=== PATIENT | male | born 1950 | race Caucasian/White ===

== ENCOUNTER 2021-04-19 06:51 | Inpatient (IN) ==
[2021-04-19] MEDS ORDERED: DILTIAZEM 25 MG/5 ML VIAL IV ONE ×2 (07:16→08:01)
[2021-04-19] MEDS ORDERED: DILTIAZEM 125 MG in DEXTROSE 5% IN WATER 100 ML IV SCH (07:30)
--- NOTE | 2021-04-19 07:34 | Emergency Department Note ---
SOB HPI General Chief Complaint: Shortness of Breath/Dyspnea Stated Complaint: SOB Time Seen by Provider: 04/19/21 07:04 Source: patient Mode of arrival: ambulatory Limitations: no limitations History of Present Illness HPI Narrative: Narrative: Presents to room T3 for evaluation of shortness of breath and tachycardia. The patient has a significant past medical history which includes coronary artery disease with CABG. The patient has a cardiomyopathy. The last recorded echocardiogram in our medical record was in 2019 with EF of 58%. Patient also has history of chronic kidney disease and subsequent renal transplant. The patient also has pulmonary scarring and decreased function of his right hemidiaphragm. He reports over the last 6 months he has had worsening shortness of breath. Over the last several months he has had increased swelling in his legs. He states recently he has had decreased exertional tolerance. He reports yesterday that he was doing physical therapy and it was advised that his heart rate was fast and that he should seek medical attention. He comes in this morning for these concerns. He denies any fevers or chills. No cough or sputum production. He denies any sense of pa lpitation or irregular heartbeat. No chest pain. He does report some mild swelling in the legs. The patient denies any significant orthopnea. He does sleep sitting up secondary to his pulmonary disease. He denies any episodes of nocturia or PND. Related Data Home Medications Medication Instructions Recorded Confirmed aspirin 81 mg capsule,delayed 81 mg PO QDAY 05/13/15 01/16/21 release potassium chloride 10 mEq 10 meq PO QDAY 10/10/18 01/16/21 tablet,extended release magnesium oxide 400 mg (241.3 mg 400 mg PO QDAY tab 08/29/20 01/16/21 magnesium) tablet sitagliptin 50 mg tablet 50 mg PO QDAY tab 04/04/21 04/04/21 Previous Rx's Medication Instructions Recorded budesonide-formoterol HFA 160 2 puff INHALATION BID #10.2 g 06/14/20 mcg-4.5 mcg/actuation aerosol inhaler tacrolimus 0.5 mg capsule, 0.5 mg PO Q12H 90 Days #180 cap 07/01/20 immediate-release apixaban 5 mg tablet 5 mg PO DAILY #90 tab 08/24/20 carvedilol 25 mg tablet 37.5 mg PO BID #270 tab 08/24/20 lisinopril 10 mg tablet 10 mg PO QDAY #90 tab 08/24/20 insulin glargine 100 unit/mL (3 35 unit SUB-Q QAM 90 Days #33 ml 09/22/20 mL) subcutaneous pen loperamide 2 mg tablet 2 mg PO BID PRN #20 tab 09/22/20 prednisone 5 mg tablet 5 mg PO QDAY #90 tab 11/18/20 leflunomide 10 mg tablet 10 mg PO .QOD #30 tab 01/04/21 albuterol sulfate 90 mcg/actuation 2 inh INHALATION Q6H PRN #1 each 01/16/21 breath activated powder inhaler atorvastatin 40 mg tablet 40 mg PO QHS #90 tab 02/01/21 insulin lispro 100 unit/mL See Rx Instructions SUB-Q TID #90 02/09/21 subcutaneous pen ml levothyroxine 150 mcg tablet 150 mcg PO QDAY #90 tab 02/09/21 furosemide 20 mg tablet 20 mg PO QAM #90 tab 04/04/21 amlodipine 10 mg tablet 10 mg PO QHS #90 tab 04/10/21 Allergies Allergy/AdvReac Type Severity Reaction Status Date / Time No Known Drug Allergies Allergy Verified 04/19/21 06:52 Review of Systems ROS ROS Narrative: Narrative: All systems ED: reviewed and negative except as stated. PFSH Narrative Patient History Narrative: Narrative: Medical/Surgical/Family History All Active Problems (Updated 04/19/21 @ 10:16 by Phong Bravo MD) Chronic kidney disease, stage II (mild) (Chronic) Homocystinemia (Chronic) HTN (hypertension) (Chronic) Hyperlipidemia (Chronic) Anemia in CKD (chronic kidney disease) (Chronic) intermediate use of drug (Chronic) Long-term insulin use (Chronic) Obesity (Chronic) Urethral stricture (Chronic) Vitamin D deficiency (Chronic) Benign prostatic hypertrophy with lower urinary tract symptoms (LUTS) (Chronic) Visual disturbance (Chronic) Frequent PVCs (Chronic) RBBB (Chronic) Constipation (Chronic) Congestive heart failure (Chronic) Acid reflux disease (Chronic) Polycythemia (Chronic) Bronchiectasis (Chronic) Pulmonary fibrosis (Chronic) Elevated hemidiaphragm (Chronic) BK viruria (Chronic) Hypertensive heart disease with congestive heart failure and chronic kidney disease (Chronic) Secondary hyperparathyroidism of renal origin (Chronic) Renal transplant recipient (Chronic) Paralysis, diaphragm (Chronic) Viridans streptococci infection (Acute) Recurrent urinary tract infection (Acute) Right upper quadrant abdominal mass (Acute) Blood clotting disorder (Chronic) Hypothyroid (Chronic) Right knee pain (Chronic) Osteoarthritis (Chronic) Essential tremor (Chronic) Callus of foot (Chronic) Diarrhea (Chronic) Diabetes mellitus with kidney complication (Chronic) UTI (urinary tract infection) with pyuria (Acute) Pulmonary hypertension (Acute) Infection due to Citrobacter (Acute) Nocturnal hypoxia (Acute) Therapeutic drug monitoring (Acute) Edema (Acute) Acute dyspnea (Acute) CHF (congestive heart failure) (Acute) Atrial fibrillation with rapid ventricular response (Acute) Medical History Anemia in CKD (chronic kidney disease) Benign prostatic hypertrophy with lower urinary tract symptoms (LUTS) 10/07/2013 BK viruria Initially treated with stopping mycophenolate mofetil and decreased prograf dose. Stable GFR and undetectable BK viremia [place] [address] copies (was <500 since 2017). Bladder and urethra injury 11/03/2014 Blood clotting disorder Bronchiectasis C. difficile diarrhea Callus of foot Right Chronic kidney disease, stage II (mild) s/p renal transplant Chronic kidney disease, stage II (mild) SCr 1.1 - 1.3 Diabetes mellitus with kidney complication Diarrhea DVT (deep venous thrombosis) Hx Elevated hemidiaphragm right Essential tremor left upper extremity Homocystinemia HTN (hypertension) Hyperlipidemia Hypertensive heart disease with congestive heart failure and chronic kidney disease Controlled with High dose B-katelyn, RAASI, CCB 2 vessel CABG before RTx (paralyzed right blas-diaphragm noted months later) Hypokalemia Hypomagnesemia Hypothyroid Incomplete bladder emptying 10/07/2013 intermediate use of drug Long-term insulin use Medicare annual wellness visit, subsequent Nocturnal hypoxia Obesity Obstructive nephropathy Obstructive uropathy Osteoarthritis Paralysis, diaphragm 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 Pelvic pain Polycythemia Pulmonary fibrosis Pulmonary hypertension Pyelonephritis, acute Right knee pain Screening for HIV (human immunodeficiency virus) Screening for prostate cancer Secondary hyperparathyroidism of renal origin Serial calcium phosphorus and PTH levels SOB (shortness of breath) Thrombosis/embolism, venous 2007; Previous deep vein thrombosis of right lower extremity Urethral stricture Urinary tract infection RECURRENT UTI Did have cdiff, so advised to try and be careful with antibiotics and we always need to try and have urine culture will monitor Vitamin D deficiency Surgical History History of kidney transplant 09/18/2014. Dr. Filippo Whitley: Donor renal transplant using left donor kidney to the left lower quadrant History of prostate surgery 2006; Lazer surgery on prostate to relieve urinary blockage History of surgery 09/18/2014; Ureteroneocystostomy. Extravesical ureteroneocystostomy with 6x12 double j stent History of surgery double bypass per patient. History of surgery on arm Left; fistulaplasty History of urethral stent 2006 Hx of cholecystectomy (~2013) Renal transplant recipient Obstructive uropathy from prostate cancer and BPH is the etiology of his renal failure [facility] renal transplant 09/18/2014 GFR is stable after an episode of BK viremia, now cleared 6 month f/U with dermatology and yearly follow-up with Dr Guerra for cardiac issues Status post anal fissurectomy Approx. 1983; Anal fissure surgery Status post kidney transplant Family History Mother , age 84 Diabetes Sepsis, Onset Age: 84 Hypertension Father , age 69 Diabetes Hypertension Social History Smoking Status: Former smoker Alcohol Intake Frequency: holiday/special occasion only Substance Use: does not use Exam Narrative Narrative: Narrative: General Limitations: no limitations General appearance: Present alert and in no apparent distress Head Head: Present atraumatic, normocephalic and normal inspection Eye Eye: Present normal appearance and EOMI; Absent conjunctival injection ENT ENT: Present normal exam and mucous membranes moist Neck Neck: Present normal inspection and trachea midline Respiratory Respiratory: Present normal lung sounds bilaterally; Absent respiratory distress Cardiovascular Cardiovascular: Present tachycardia, irregular rhythm and normal heart sounds Adbominal Abdominal: Present soft; Absent distention, tenderness, guarding and rebound Extremities Extremities: Present normal inspection and pretibial edema; Absent tenderness Back Back: Present normal inspection; Absent tenderness Neurological Neurological: Present alert, oriented X3 and CN II-XII intact; Absent motor sensory deficit Psychiatric Psychiatric: Present normal affect and normal mood Skin Skin: Present warm (WNL) and dry; Absent rash Course Vital Signs Vital signs: Vital Signs Temperature 97.1 F 04/19/21 06:52 Pulse Rate 125 H 04/19/21 06:52 Respiratory Rate 27 H 04/19/21 06:52 Pulse Oximetry (%) 85 L 04/19/21 06:52 Temperature 97.1 F 04/19/21 06:52 Pulse Rate 48 L 04/19/21 08:36 Respiratory Rate 21 04/19/21 08:36 Blood Pressure 112/68 04/19/21 08:30 Pulse Oximetry (%) 97 04/19/21 08:36 MDM MDM Narrative Medical decision making narrative: Narrative: Lab Data Lab results reviewed: Yes I reviewed the patient's lab results. Result diagrams: 04/19/21 07:27 04/19/21 07:27 Labs: Lab Results 04/19/21 04/19/21 04/19/21 Range/Units 07:27 07:27 07:27 WBC 6.8 (4.5-11.0) K/mcL RBC 4.60 (4.50-5.90) M/mcL Hgb 14.5 (13.5-16.5) g/dL Hct 44.4 (41.0-55.0) % MCV 96.5 (80.0-100.0) fL MCH 31.5 (26.0-34.0) pg MCHC 32.7 (31.0-36.0) g/dL RDW 13.0 (11.5-14.5) % Plt Count 150 (140-440) K/mcL MPV 11.0 H (7.4-10.4) fL Neut % (Auto) 60.4 (38.0-78.0) % Lymph % (Auto) 25.8 (15.0-49.0) % [place] % (Auto) 10.5 (1.0-12.0) % Eos % (Auto) 2.9 (0.0-7.0) % Baso % (Auto) 0.4 (0.0-2.0) % Lymph # (Auto) 1.75 (1.50-4.80) K/mcL [place] # (Auto) 0.71 (0.10-0.90) K/mcL Eos # (Auto) 0.20 (0.00-0.70) K/mcL Baso # (Auto) 0.03 (0.00-0.20) K/mcL Absolute Neutrophils 4.09 (1.80-8.00) K/mcL Sodium 140 (133-145) mmol/L Potassium 4.3 (3.3-5.1) mmol/L Chloride 103 (96-108) mmol/L Carbon Dioxide 25 (22-30) mmol/L Anion Gap 12.0 (8.0-16.0) BUN 20 (8-23) mg/dL Creatinine 1.2 (0.7-1.2) mg/dL GFR Calculation 60 Glucose 154 H (70-105) mg/dL Calcium 9.7 (8.6-10.4) mg/dL Total Bilirubin 0.7 (0.1-1.0) mg/dL AST 15 (<40) U/L ALT 10 (<40) U/L Alkaline Phosphatase 82 (39-117) U/L Troponin T 0.03 H (<0.03) ng/mL NT-Pro-B Natriuret Pep 2036.0 H (<125.0) pg/mL Total Protein 5.8 L (5.9-8.4) gm/dL Albumin 3.4 (3.2-5.2) gm/dL Globulin 2.4 (2.2-3.7) gm/dL Albumin/Globulin Ratio 1.4 (1.0-2.3) Radiology Data Radiology results reviewed: Yes I reviewed the patient's radiology results. EKG Data EKG #1: EKG attestation: Yes I reviewed and interpreted this EKG., Yes There are no EKG findings of acute coronary syndrome and Yes This EKG will be read by chief reservoir engineering EKG results narrative: Atrial fibrillation with rapid ventricular spots, rate 129, RBBB, diffuse ST segment depression which is unchanged compared to previous EKGs peer Rhythm Strip Data Rhythm Strip Rate: 120 Interpretation: Atrial fibrillation Pulse Oximetry Data Pulse Ox %: 98 Interpretation: Room air, normal CC TIME Critical Care Time Critical Care Time: Yes Total Critical Care Time: 30 Attestation: Approximately 30 minutes of critical care time was used in order to assess and manage the high probability of imminent or life threatening deterioration which required my highest level of preparedness and interventions with frequent patient assessments. This time is excluding time spent on separately billable procedures. Patient presents for evaluation of worsening shortness of breath in the context of underlying paroxysmal atrial fibrillation and cardiomyopathy. The patient is noted to be in atrial fibrillation with rapid ventricular. This was treated with IV Cardizem followed by IV Cardizem drip. On initial reassessment the patient's rate did not significantly improve and was redosed with a second IV Cardizem bolus. The patient's rate did improve into the mid 80s. His EKG does not show any evidence of acute injury or ischemia. Chest x-ray does show infiltrates which are most likely related to pulmonary edema. Have low suspicion for pneumonia based on clinical presentation. The patient's labs are otherwise unremarkable. BNP is elevated. The patient normally takes Lasix 20 mg a day and was given a single dose of IV Lasix at 40 mg I have discussed the case with the hospitalist, Dr. Montejo. Discharge Plan Patient/Caregiver Discharge Instructions Pt seen by MINER ASSISTANT/PA only: No Clinical Impression: Acute dyspnea, CHF (congestive heart failure), Atrial fibrillation with rapid ventricular response Patient Disposition: Xfer As Inpt ([facility]) Follow up with: Yomi Artis MD [Primary Care Provider] - Prescriptions: No Action Symbicort 160-4.5 mcg/actuation HFA aerosol inhaler 2 puff INHALATION BID Qty: 10.2 RF: 12 tacrolimus 0.5 mg capsule 0.5 mg PO Q12H 90 Days Qty: 180 RF: 3 carvedilol 25 mg tablet 37.5 mg PO BID Qty: 270 RF: 1 prednisone 5 mg tablet 5 mg PO QDAY Qty: 90 RF: 3 leflunomide 10 mg tablet 10 mg PO .QOD Qty: 30 RF: 6 atorvastatin 40 mg tablet 40 mg PO QHS Qty: 90 RF: 3 insulin lispro [Humalog KwikPen Insulin] 100 unit/mL insulin pen See Rx Instructions SUB-Q TID Qty: 90 RF: 1 levothyroxine 150 mcg tablet 150 mcg PO QDAY Qty: 90 RF: 1 amlodipine 10 mg tablet 10 mg PO QHS Qty: 90 RF: 3 aspirin 81 mg capsule,delayed release(DR/EC) 81 mg PO QDAY RF: 0 magnesium oxide 400 mg (241.3 mg magnesium) tablet 400 mg PO QDAY RF: 0 lisinopril 10 mg tablet 10 mg PO QDAY Qty: 90 RF: 1 Eliquis 5 mg tablet 5 mg PO DAILY Qty: 90 RF: 1 Basaglar KwikPen U-100 Insulin 100 unit/mL (3 mL) insulin pen 35 unit SUB-Q QAM 90 Days Qty: 33 RF: 3 loperamide [Imodium A-D] 2 mg tablet 2 mg PO BID PRN (Reason: loose stool) Qty: 20 RF: 0 potassium chloride 10 mEq tablet extended release 10 meq PO QDAY RF: 0 sitagliptin 50 mg tablet 50 mg PO QDAY RF: 0 furosemide 20 mg tablet 20 mg PO QAM Qty: 90 RF: 3 albuterol sulfate 90 mcg/actuation aerosol powdr breath activated 2 inh INHALATION Q6H PRN (Reason: shortness of breath or wheezing) Qty: 1 RF: 2
[2021-04-19 08:04] LABS: Basophils # (Auto) 0.03 K/mcL (0.00-0.20); Basophils % (Auto) 0.4 % (0.0-2.0); Eosinophils % (Auto) 2.9 % (0.0-7.0); Hematocrit 44.4 % (41.0-55.0); Hemoglobin 14.5 g/dL (13.5-16.5); Lymphocytes # (Auto) 1.75 K/mcL (1.50-4.80); Lymphocytes % (Auto) 25.8 % (15.0-49.0); Mean Cell Volume 96.5 fL (80.0-100.0); Mean Corpuscular HGB Conc 32.7 g/dL (31.0-36.0); Monocytes # (Auto) 0.71 K/mcL (0.10-0.90); Monocytes % (Auto) 10.5 % (1.0-12.0); Neutrophils % (Auto) 60.4 % (38.0-78.0); Platelet Count 150 K/mcL (140-440); WBC 6.8 K/mcL (4.5-11.0)
--- NOTE | 2021-04-19 08:15 | XRay Report ---
HISTORY: Short of breath FINDINGS: There are widespread patchy alveolar infiltrates in both lungs, right side greater than left. There is moderate volume loss in the right lung with elevation right diaphragm. No pleural effusion is detected. The heart size is normal. There has been a prior sternotomy with coronary bypass. The elevation of the diaphragm is a chronic finding. The infiltrates are new since 03/11/19. IMPRESSION: Widespread bilateral pulmonary infiltrates which could be due to pneumonia or pulmonary edema Interpreted and Authenticated by: Tonio Reinoso 04/19/21
[2021-04-19 08:27] LABS: ALT/SGPT 10 U/L (<40); AST/SGOT 15 U/L (<40); Albumin 3.4 gm/dL (3.2-5.2); Albumin/Globulin Ratio 1.4 (1.0-2.3); Alkaline Phosphatase 82 U/L (39-117); Bilirubin,Total 0.7 mg/dL (0.1-1.0); Blood Urea Nitrogen 20 mg/dL (8-23); Calcium 9.7 mg/dL (8.6-10.4); Carbon Dioxide 25 mmol/L (22-30); Chloride 103 mmol/L (96-108); Globulin 2.4 gm/dL (2.2-3.7); Glomerular Filtration Rate 60; Glucose 154 mg/dL (70-105)
[2021-04-19] MEDS ORDERED: FUROSEMIDE 40 MG/4 ML VIAL IV ONE (08:33)
[2021-04-19] MEDS ORDERED: INSULIN GLARGINE, HUMAN 1 UNIT/0.01 ML SQ SCH (09:00)
--- NOTE | 2021-04-19 11:22 | Internal Med History&Physical ---
HPI History of Present Illness Patient information: Note initiated : 04/19/21 at 11:11 am Service Date, if different from initiated Date: [] Patient: Tanner Rose a 70 y/o M admitted on for SOB . Chief Complaint: [] History of present illness: Mr. Rose is a 70 year old M Presents the ED with increased shortness of breath dyspnea on exertion. Patient has been dealing with this for 6 months but it got to the point where he feels like he can hardly walk across the room before he gets exhausted. He does have a cough which is essentially chronic but has been worse lately as well especially in the evenings. He sleeps and bed but head of bed elevated and was done this for 6 months. During his work-up for shortness of breath he saw Dr. Stallworth in the past who diagnosed him with pulmonary fibrosis paralyzed right hemidiaphragm and pulmon cirilo hypertension. He also has a history of renal transplant 2013 and has chronic kidney disease stage II-III and is on suppressive's for that. He has a history of diastolic heart failure history of CAD with CABG and COPD but has not currently on home oxygen. Does carry diagnosis of A. fib. And he presented with A. fib RVR as well as put on diltiazem drip. Chest x-ray with CHF. Given Lasix with good urine output. Vital signs stable. Patient feels better. Review of Systems: Pertinent positives as above. Denies headache/fever/chills/nausea/vomiting/chest or abdominal pain/diarrhea. Remaini ng 10 point review of system reviewed negative PFSH PFSH All Active Problems (Updated 04/19/21 @ 10:16 by Phong Bravo MD) Chronic kidney disease, stage II (mild) (Chronic) Homocystinemia (Chronic) HTN (hypertension) (Chronic) Hyperlipidemia (Chronic) Anemia in CKD (chronic kidney disease) (Chronic) detention use of drug (Chronic) Long-term insulin use (Chronic) Obesity (Chronic) Urethral stricture (Chronic) Vitamin D deficiency (Chronic) Benign prostatic hypertrophy with lower urinary tract symptoms (LUTS) (Chronic) Visual disturbance (Chronic) Frequent PVCs (Chronic) RBBB (Chronic) Constipation (Chronic) Congestive heart failure (Chronic) Acid reflux disease (Chronic) Polycythemia (Chronic) Bronchiectasis (Chronic) Pulmonary fibrosis (Chronic) Elevated hemidiaphragm (Chronic) BK viruria (Chronic) Hypertensive heart disease with congestive heart failure and chronic kidney disease (Chronic) Secondary hyperparathyroidism of renal origin (Chronic) Renal transplant recipient (Chronic) Paralysis, diaphragm (Chronic) Viridans streptococci infection (Acute) Recurrent urinary tract infection (Acute) Right upper quadrant abdominal mass (Acute) Blood clotting disorder (Chronic) Hypothyroid (Chronic) Right knee pain (Chronic) Osteoarthritis (Chronic) Essential tremor (Chronic) Callus of foot (Chronic) Diarrhea (Chronic) Diabetes mellitus with kidney complication (Chronic) UTI (urinary tract infection) with pyuria (Acute) Pulmonary hypertension (Acute) Infection due to Citrobacter (Acute) Nocturnal hypoxia (Acute) Therapeutic drug monitoring (Acute) Edema (Acute) Acute dyspnea (Acute) CHF (congestive heart failure) (Acute) Atrial fibrillation with rapid ventricular response (Acute) Medical History Anemia in CKD (chronic kidney disease) Benign prostatic hypertrophy with lower urinary tract symptoms (LUTS) 10/07/2013 BK viruria Initially treated with stopping mycophenolate mofetil and decreased prograf dose. Stable GFR and undetectable BK viremia [place] [address] copies (was <500 since 2017). Bladder and urethra injury 11/03/2014 Blood clotting disorder Bronchiectasis C. difficile diarrhea Callus of foot Right Chronic kidney disease, stage II (mild) s/p renal transplant Chronic kidney disease, stage II (mild) SCr 1.1 - 1.3 Diabetes mellitus with kidney complication Diarrhea DVT (deep venous thrombosis) Hx Elevated hemidiaphragm right Essential tremor left upper extremity Homocystinemia HTN (hypertension) Hyperlipidemia Hypertensive heart disease with congestive heart failure and chronic kidney disease Controlled with High dose B-katelyn, RAASI, CCB 2 vessel CABG before RTx (paralyzed right blas-diaphragm noted months later) Hypokalemia Hypomagnesemia Hypothyroid Incomplete bladder emptying 10/07/2013 terminal gauger use of drug Long-term insulin use Medicare annual wellness visit, subsequent Nocturnal hypoxia Obesity Obstructive nephropathy Obstructive uropathy Osteoarthritis Paralysis, diaphragm 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 Pelvic pain Polycythemia Pulmonary fibrosis Pulmonary hypertension Pyelonephritis, acute Right knee pain Screening for HIV (human immunodeficiency virus) Screening for prostate cancer Secondary hyperparathyroidism of renal origin Serial calcium phosphorus and PTH levels SOB (shortness of breath) Thrombosis/embolism, venous 2007; Previous deep vein thrombosis of right lower extremity Urethral stricture Urinary tract infection RECURRENT UTI Did have cdiff, so advised to try and be careful with antibiotics and we always need to try and have urine culture will monitor Vitamin D deficiency Surgical History History of kidney transplant 09/18/2014. Dr. Filippo Whitley: Donor renal transplant using left donor kidney to the left lower quadrant History of prostate surgery 2006; Lazer surgery on prostate to relieve urinary blockage History of surgery 09/18/2014; Ureteroneocystostomy. Extravesical ureteroneocystostomy with 6x12 double j stent History of surgery double bypass per patient. History of surgery on arm Left; fistulaplasty History of urethral stent 2006 Hx of cholecystectomy (~2013) Renal transplant recipient Obstructive uropathy from prostate cancer and BPH is the etiology of his renal failure Cadaveric renal transplant 09/18/2014 GFR is stable after an episode of BK viremia, now cleared 6 month f/U with dermatology and yearly follow-up with Dr Guerra for cardiac issues Status post anal fissurectomy Approx. 1983; Anal fissure surgery Status post kidney transplant Family History Mother , age 84 Diabetes Sepsis, Onset Age: 84 Hypertension Father , age 69 Diabetes Hypertension Social History marital status: smoking status stop date: 11/04/83 alcohol intake frequency: holiday/special occasion only substance use type: does not use MEDS/ALLERGIES Home Medications and Allergies Home Medications Medication Instructions Recorded Confirmed Type aspirin 81 mg capsule,delayed 81 mg PO QDAY 05/13/15 04/19/21 History release potassium chloride 10 mEq 10 meq PO QDAY 10/10/18 04/19/21 History tablet,extended release budesonide-formoterol HFA 160 2 puff INHALATION BID #10.2 g 06/14/20 04/19/21 Rx mcg-4.5 mcg/actuation aerosol inhaler tacrolimus 0.5 mg capsule, 0.5 mg PO Q12H 90 Days #180 cap 07/01/20 04/19/21 Rx immediate-release apixaban 5 mg tablet 5 mg PO DAILY #90 tab 08/24/20 04/19/21 Rx carvedilol 25 mg tablet 37.5 mg PO BID #270 tab 08/24/20 04/19/21 Rx lisinopril 10 mg tablet 10 mg PO QDAY #90 tab 08/24/20 04/19/21 Rx magnesium oxide 400 mg (241.3 mg 400 mg PO QDAY tab 08/29/20 04/19/21 History magnesium) tablet insulin glargine 100 unit/mL (3 35 unit SUB-Q QAM 90 Days #33 ml 09/22/20 04/19/21 Rx mL) subcutaneous pen loperamide 2 mg tablet 2 mg PO BID PRN #20 tab 09/22/20 04/19/21 Rx prednisone 5 mg tablet 5 mg PO QDAY #90 tab 11/18/20 04/19/21 Rx leflunomide 10 mg tablet 10 mg PO .QOD #30 tab 01/04/21 04/19/21 Rx albuterol sulfate 90 mcg/actuation 2 inh INHALATION Q6H PRN #1 each 01/16/21 04/19/21 Rx breath activated powder inhaler atorvastatin 40 mg tablet 40 mg PO QHS #90 tab 02/01/21 04/19/21 Rx insulin lispro 100 unit/mL See Rx Instructions SUB-Q TID #90 02/09/21 04/19/21 Rx subcutaneous pen ml levothyroxine 150 mcg tablet 150 mcg PO QDAY #90 tab 02/09/21 04/19/21 Rx furosemide 20 mg tablet 20 mg PO QAM #90 tab 04/04/21 04/19/21 Rx sitagliptin 50 mg tablet 50 mg PO QDAY tab 04/04/21 04/19/21 History amlodipine 10 mg tablet 10 mg PO QHS #90 tab 04/10/21 04/19/21 Rx Allergies Allergy/AdvReac Type Severity Reaction Status Date / Time No Known Drug Allergies Allergy Verified 04/19/21 06:52 EXAM Constitutional Vitals: Temp Pulse Resp BP Pulse Ox 97.1 F 111 H 17 113/84 96 04/19/21 06:52 04/19/21 10:23 04/19/21 10:23 04/19/21 10:23 04/19/21 10:23 Exam: General: Alert, Awake, No acute Distress Eyes/N/T: EOMI, PERRL, Head/Neck: neck supple, normocephalic atraumatic CV: RRR, No murmurs, normal s1/s2 Pulm: mildly diminished, mild fine rales at bases, mild exp wheezes Abd: soft, nontender, +BS x4 Ext: no clubbing/cyanosis, 3+ b/l LE edema Neuro: Alert, no focal deficits, moves all extremities, CN 2-12 grossly intact, symmetrical strength b/l upper/lower, sensations intact b/l upper/lower Skin: warm/dry DATA Data Completed and Pending Labs: Labs from last 24 hours 04/19/21 04/19/21 04/19/21 07:27 07:27 07:27 WBC 6.8 RBC 4.60 Hgb 14.5 Hct 44.4 MCV 96.5 MCH 31.5 MCHC 32.7 RDW 13.0 Plt Count 150 MPV 11.0 H Neut % (Auto) 60.4 Lymph % (Auto) 25.8 [place] % (Auto) 10.5 Eos % (Auto) 2.9 Baso % (Auto) 0.4 Lymph # (Auto) 1.75 [place] # (Auto) 0.71 Eos # (Auto) 0.20 Baso # (Auto) 0.03 Absolute Neutrophils 4.09 Sodium 140 Potassium 4.3 Chloride 103 Carbon Dioxide 25 Anion Gap 12.0 BUN 20 Creatinine 1.2 GFR Calculation 60 Glucose 154 H Calcium 9.7 Total Bilirubin 0.7 AST 15 ALT 10 Alkaline Phosphatase 82 Troponin T 0.03 H NT-Pro-B Natriuret Pep 2036.0 H Total Protein 5.8 L Albumin 3.4 Globulin 2.4 Albumin/Globulin Ratio 1.4 A/P Narrative A/P Narrative: A: *A. fib RVR: -On BB/Eliquis at home *Acute on chronic diastolic heart failure w/pulm edema: *Acute hypoxic respiratory failure: -on 1L NC *CAD w/cabg: on ASA/Statin/BB/ACEI *HTN: norvasc/ACEI/BB/Lasix *CKD II-III with renal Transplant: on leflunomide/Prednisone/Tacrolimus. Follows with Dr. Bernard -chronic pyuria, per Nephro do not treat unless symptomatic *Pulmonary fibrosis/right diaphragm hemiparalysis/pulme HTN: Follows with Dr. Stallworth *COPD(currently not on home O2): *DM: *Hypothyroidism: P: -wean Dilt gtt to BB -IV lasix -wean O2 as able -echo -cont ASA/Statin -cont BB, restart ACEI in AM after renal fxn f/u, hold norvasc for now given low-normal BP -home IH's, prn neb, LALA -basal and SSI - -elevate legs/PILAR -PT/OT -Case management for placement needs -ppx: eliquis DNR Time Spent With Patient Time: Total time spent is greater than 50% in coordination of care (as documented) at patient's floor/unit and/or counseling patient:
[2021-04-19] MEDS ORDERED: ACETAMINOPHEN 325 MG TABLET PO PRN (12:02)
--- NOTE | 2021-04-19 12:07 | EKG ---
[facility] Test Date: 2021-04-19 Pat Name: Tanner Rose Department: ED Room: Gender: Male Hearing Examiner: : 1950 Requested By: Phong Bravo Order Number: [id number] Reading MD: Nathan Molina M.D. Measurements Intervals Wink Rate: 129 P: MO: QRS: -7 QRSD: 128 T: -40 QT: 320 QTc: 469 Interpretive Statements Atrial fibrillation Right bundle branch block Repol abnrm suggests ischemia, diffuse leads, may be rate-related Baseline wander in lead(s) I,II,III,aVL,aVF,V2,V3,V4 Electronically Signed On 04-19-2021 12:07:12 PDT by Nathan Molina M.D. /store/M0/[id number]/ecg/[id number]
[2021-04-19] MEDS ORDERED: LOPERAMIDE 2 MG CAPSULE PO PRN (12:11)
[2021-04-19] MEDS ORDERED: DEXTROSE 50% 50 ML VIAL IV PRN (12:19)
[2021-04-19 12:29] LABS: Thyroid Stimulating Hormone 2.19 uIU/mL (0.27-5.01)
[2021-04-19] MEDS ORDERED: MAGNESIUM SULFATE 2 GM/50 ML BAG IV ONE (12:43)
[2021-04-19] MEDS: TACROLIMUS 0.5 MG CAPSULE PO SCH (14:09)
[2021-04-19] MEDS: 0.9 % SODIUM CHLORIDE 10 ML SYRINGE IV SCH ×2 (14:09→21:38)
[2021-04-19] MEDS: DILTIAZEM 125 MG in DEXTROSE 5% IN WATER 100 ML IV SCH (14:09)
[2021-04-19] MEDS: FUROSEMIDE 40 MG/4 ML VIAL IV SCH (16:12)
[2021-04-19] MEDS: INSULIN LISPRO 1 UNIT/0.01 ML UNIT SQ SCH ×2 (17:36→21:36)
[2021-04-19] MEDS: CARVEDILOL 12.5 MG TABLET PO SCH (18:57)
[2021-04-19] MEDS ORDERED: ATORVASTATIN 40 MG TABLET PO SCH (21:00)
[2021-04-19] MEDS: INSULIN GLARGINE, HUMAN 1 UNIT/0.01 ML SQ SCH (21:36)
[2021-04-19] MEDS: APIXABAN 5 MG TABLET PO SCH (21:38)
[2021-04-20] MEDS: TACROLIMUS 0.5 MG CAPSULE PO SCH ×3 (00:37→23:45)
[2021-04-20] MEDS: DILTIAZEM 125 MG in DEXTROSE 5% IN WATER 100 ML IV SCH ×2 (02:08→07:21)
[2021-04-20] MEDS: 0.9 % SODIUM CHLORIDE 10 ML SYRINGE IV SCH ×3 (05:08→21:49)
[2021-04-20] MEDS: 0.9 % SODIUM CHLORIDE 250 ML IV SCH ×3 (05:08→19:36)
[2021-04-20 07:04] LABS: Basophils # (Auto) 0.02 K/mcL (0.00-0.20); Basophils % (Auto) 0.3 % (0.0-2.0); Eosinophils # (Auto) 0.16 K/mcL (0.00-0.70); Eosinophils % (Auto) 2.6 % (0.0-7.0); Hematocrit 41.7 % (41.0-55.0); Hemoglobin 13.6 g/dL (13.5-16.5); Lymphocytes # (Auto) 1.11 K/mcL (1.50-4.80); Lymphocytes % (Auto) 18.3 % (15.0-49.0); Mean Cell Volume 95.6 fL (80.0-100.0); Mean Corpuscular HGB Conc 32.6 g/dL (31.0-36.0); Monocytes % (Auto) 11.6 % (1.0-12.0); Neutrophils % (Auto) 67.2 % (38.0-78.0); Platelet Count 148 K/mcL (140-440); RBC 4.36 M/mcL (4.50-5.90); Red Cell Distribution Width 12.7 % (11.5-14.5); WBC 6.1 K/mcL (4.5-11.0)
[2021-04-20] MEDS: PANTOPRAZOLE 40 MG TABLET PO SCH (07:33)
[2021-04-20] MEDS: INSULIN LISPRO 1 UNIT/0.01 ML UNIT SQ SCH ×4 (07:39→21:48)
--- NOTE | 2021-04-20 07:48 | Internal Med Progress Note ---
SUBJECTIVE Subjective Patient information: Note initiated : 04/20/21 at 7:44 am Service Date, if different from initiated Date: [] Patient: Tanner Rose a 70 y/o M admitted on 04/19/21 for SOB . Chief Complaint: [] Interval history: istory of present illness: Mr. Rose is a 70 year old M Presents the ED with increased shortness of breath dyspnea on exertion. Patient has been dealing with this for 6 months but it got to the point where he feels like he can hardly walk across the room before he gets exhausted. He does have a cough which is essentially chronic but has been worse lately as well especially in the evenings. He sleeps and bed but head of bed elevated and was done this for 6 months. During his work-up for shortness of breath he saw Dr. 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 He also has a history of renal transplant 2013 and has chronic kidney disease stage II-III and is on suppressive's for that. He has a history of diastolic heart failure history of CAD with CABG and COPD but has not currently on home oxygen. Does carry diagnosis of A. fib. And he presented with A. fib RVR as well as put on diltiazem drip. Chest x-ray with CHF. Given Lasix with good urine output. Vital signs stable. Patient feels better. 04/20 Patient feeling better. Still does have shortness of breath but is much improved. Good urine output. Leg swelling improved. Review of Systems: denies headache/fever/chills/nausea/vomiting/chest or abdominal pain/c ough/diarrhea. Otherwise see above. Constitutional Vitals: Vital Signs Temp Pulse Resp BP Pulse Ox 97.6 F 82 19 123/71 94 04/20/21 04:08 04/20/21 04:06 04/20/21 04:06 04/20/21 04:06 04/20/21 04:06 Period Temp Pulse Resp BP Sys/Joshua Pulse Ox Last 24 Hr 96.9 F-98.9 F 25-171 16-28 96-123/63-88 88-98 Intake and Output 04/19/21 04/20/21 04/20/21 21:59 05:59 13:59 Intake Total 764 28 80 Output Total 2165 565 Balance -1401 -537 80 Weight 95.345 kg Intake & Output: Intake & Output 04/19/21 04/20/21 04/20/21 21:59 05:59 13:59 Intake Total 764 28 80 Output Total 2160 565 Balance -1401 537 80 Weight 95.345 kg Intake: IV 164 28 80 Sodium Chloride 0.9% 250 ml @ 45 20 mls/hr IV .[id number] MAHENDRA Rx#: [id number] Cardizem 125 mg In Dextrose 5% 114 28 35 in Water 100 ml @ 5 MG/HR 5 mls /hr IV Q12H MAHENDRA Rx#:[id number] Oral 600 Output: Urine Catheter Amount 1994 Void Amount 170 Other: Meal Dinner Percent of Meal Consumed 50% Urine Appearance Clear Clear Uretheral (Ryan) Clear Urine Color Straw Dark Yellow Uretheral (Ryan) Bright Yellow Straw Exam: General: Alert, Awake, No acute Distress Eyes/N/T: EOMI, , Head/Neck: neck supple, CV: irreg, No murmurs, normal s1/s2 Pulm: mildly diminished, mild fine rales at bases, no wheezes Abd: soft, nontender, +BS x4 Ext: no clubbing/cyanosis, 2+ b/l LE edema improving Neuro: Alert, no focal deficits, moves all extremities, Skin: warm/dry OBJ DATA Labs CBC & Chem 7: 04/20/21 05:13 04/20/21 05:13 Labs: Abnormal Lab Results 04/20/21 04/20/21 04/19/21 05:13 05:13 07:27 RBC 4.36 L MPV 11.0 H Lymph # (Auto) 1.11 L Glucose Magnesium 1.5 L Troponin T NT-Pro-B Natriuret Pep 1084.0 H Total Protein 04/19/21 04/19/21 04/19/21 07:27 07:27 07:27 RBC MPV 11.0 H Lymph # (Auto) Glucose 154 H Magnesium Troponin T 0.03 H NT-Pro-B Natriuret Pep 2036.0 H Total Protein 5.8 L Meds: Medications Acetaminophen (Acetaminophen 325 Mg Tablet) 650 mg PO Q4-6HP PRN; Protocol PRN Reason: Per Pain Protocol/Fever > 101 Apixaban (Apixaban 5 Mg Tablet) 5 mg PO BID [facility] Last Admin: 04/19/21 21:38 Dose: 5 mg Documented by: Aspirin (Aspirin 81 Mg Tab.Chew) 81 mg PO DAILY [facility] Atorvastatin Calcium (Atorvastatin 40 Mg Tablet) 40 mg PO QHS [facility] Last Admin: 04/19/21 21:36 Dose: 40 mg Documented by: Carvedilol (Carvedilol 12.5 Mg Tablet) 37.5 mg PO BIDCC [facility] Last Admin: 04/19/21 18:57 Dose: 37.5 mg Documented by: Dextrose (Dextrose 50% 50 Ml Vial) 50 ml IV UD PRN PRN Reason: Hypoglycemia Diagnostic Test (Pha) (Accu-Chek 1 Each Strip) 1 each FS [facility] Last Admin: 04/20/21 07:39 Dose: 1 each Documented by: Furosemide (Furosemide 40 Mg/4 Ml Vial) 40 mg IV BIDD [facility] Last Admin: 04/19/21 16:12 Dose: 40 mg Documented by: Diltiazem HCl 125 mg/ Dextrose 125 mls @ 5 mls/hr IV Q12H [facility]; Protocol Last Admin: 04/20/21 07:21 Dose: 10 mg/hr, 10 mls/hr Documented by: Sodium Chloride (Sodium Chloride 0.9%) 250 mls @ 20 mls/hr IV .[id number] [facility] Last Admin: 04/20/21 07:22 Dose: 20 mls/hr Documented by: Insulin Glargine (Insulin Glargine, Human 1 Unit/0.01 Ml) 35 unit SQ [facility] Last Admin: 04/19/21 21:36 Dose: 35 units Documented by: Insulin Human Lispro (Insulin Lispro 1 Unit/0.01 Ml Unit) 0 unit SQ [facility]; Protocol Last Admin: 04/20/21 07:39 Dose: Not Given Documented by: Levothyroxine Sodium (Levothyroxine 150 Mcg Tablet) 150 mcg PO ACB [facility] Lisinopril (Lisinopril 10 Mg Tablet) 10 mg PO QDAY [facility] Loperamide HCl (Loperamide 2 Mg Capsule) 2 mg PO BIDP PRN PRN Reason: Diarrhea Magnesium Oxide (Magnesium Oxide 400 Mg Tablet) 400 mg PO QDAY [facility] Metoprolol Tartrate (Metoprolol Tartrate 5 Mg/5 Ml Vial) 5 mg IV Q2HP PRN PRN Reason: Tachyarrhythmias HR>110 Pantoprazole Sodium (Pantoprazole 40 Mg Tablet) 40 mg PO QAMAC [facility] Last Admin: 04/20/21 07:33 Dose: 40 mg Documented by: Budesonide- Formoterol [ Symbicort] 160-4.5 Mcg/Act Inhaler 1 dose INH BID [facility] Last Admin: 04/19/21 21:38 Dose: Not Given Documented by: Leflunomide 10 Mg (Tablet) 1 dose PO Q48H [facility] Potassium Chloride (Potassium Chloride 10 Meq Tablet) 10 meq PO QAMCC [facility] Prednisone (Prednisone 5 Mg Tablet) 5 mg PO QAC [facility] Sitagliptin Phosphate (Sitagliptin 50 Mg Tablet) 50 mg PO QDAY [facility] Sodium Chloride (0.9 % Sodium Chloride 10 Ml Syringe) 10 ml IV Q8 [facility] Last Admin: 04/20/21 05:08 Dose: 10 ml Documented by: Tacrolimus (Tacrolimus 0.5 Mg Capsule) 0.5 mg PO Q12H [facility] Last Admin: 04/20/21 00:37 Dose: 0.5 mg Documented by: A/P Narrative A/P Narrative: A: *A. fib RVR: -On Coreg/Eliquis at home *Acute on chronic diastolic heart failure w/pulm edema: -echo with good EF, diastolic dysfunction, LAE -good UOP *Acute hypoxic respiratory failure: -on 1L NC *CAD w/cabg: on ASA/Statin/BB/ACEI *HTN: norvasc/ACEI/BB/Lasix *CKD II-III w/Renal Transplant: on leflunomide/Prednisone/Tacrolimus. Follows with Dr. Bernard -chronic pyuria, per Nephro do not treat unless symptomatic *Pulmonary fibrosis/right diaphragm hemiparalysis/pulme HTN: Follows with Dr. Stallworth *COPD(currently not on home O2): *DM: *Hypothyroidism: P: -wean Dilt gtt to BB -IV lasix bid -wean O2 as able -cont ASA/Statin -cont BB, hold ACEI/norvasc for now given low-normal BP on dilt gtt -home IH's, prn neb, LALA -basal and SSI -cont home prednisne/transplant meds -elevate legs/PILAR -PT/OT -Case management for placement needs -ppx: eliquis DNR Time Spent With Patient Time: Total time spent is greater than 50% in coordination of care (as documented) at patient's floor/unit and/or counseling patient:
[2021-04-20 07:54] LABS: ALT/SGPT 8 U/L (<40); AST/SGOT 13 U/L (<40); Albumin 2.9 gm/dL (3.2-5.2); Albumin/Globulin Ratio 1.1 (1.0-2.3); Alkaline Phosphatase 77 U/L (39-117); Bilirubin,Direct 0.3 mg/dL (<0.3); Bilirubin,Total 0.8 mg/dL (0.1-1.0); Blood Urea Nitrogen 19 mg/dL (8-23); Calcium 9.4 mg/dL (8.6-10.4); Carbon Dioxide 28 mmol/L (22-30); Chloride 101 mmol/L (96-108); Globulin 2.6 gm/dL (2.2-3.7); Glomerular Filtration Rate 60; Glucose 101 mg/dL (70-105); Lactate Dehydrogenase 200 U/L (135-225); Phosphorous 2.3 mg/dL (2.5-4.5); Triglycerides 120 mg/dL (<150); Uric Acid 6.9 mg/dL (2.5-8.0)
[2021-04-20] MEDS: predniSONE 5 MG TABLET PO SCH (08:42)
[2021-04-20] MEDS: APIXABAN 5 MG TABLET PO SCH ×2 (08:42→21:51)
[2021-04-20] MEDS: FUROSEMIDE 40 MG/4 ML VIAL IV SCH ×2 (08:42→15:36)
[2021-04-20] MEDS: LEVOTHYROXINE 150 MCG TABLET PO SCH (08:42)
[2021-04-20] MEDS: POTASSIUM CHLORIDE 10 MEQ TABLET PO SCH (08:42)
[2021-04-20] MEDS: MAGNESIUM OXIDE 400 MG TABLET PO SCH (08:42)
[2021-04-20] MEDS: CARVEDILOL 12.5 MG TABLET PO SCH (08:42)
[2021-04-20] MEDS: ASPIRIN 81 MG TAB.CHEW PO SCH (08:42)
[2021-04-20] MEDS: sitaGLIPtin 50 MG TABLET PO SCH (08:42)
[2021-04-20] MEDS ORDERED: LISINOPRIL 10 MG TABLET PO SCH (09:00)
[2021-04-20] MEDS ORDERED: MAGNESIUM SULFATE 2 GM/50 ML BAG IV ONE (10:07)
[2021-04-20] MEDS ORDERED: AMIODARONE 150 MG in DEXTROSE 5% IN WATER 50 ML IV ONE (10:18)
[2021-04-20] MEDS ORDERED: METOPROLOL TARTRATE 5 MG/5 ML VIAL IV PRN (11:18)
[2021-04-20] MEDS ORDERED: POLYETHYLENE GLYCOL 3350 17 GM PACKET PO PRN (11:20)
[2021-04-20] MEDS ORDERED: FLEETS ADULT ENEMA PR PRN (11:21)
[2021-04-20] MEDS ORDERED: DILTIAZEM 125 MG in DEXTROSE 5% IN WATER 100 ML IV PRN (11:23)
[2021-04-20] MEDS: METOPROLOL TARTRATE 5 MG/5 ML VIAL IV PRN ×3 (14:47→19:48)
--- NOTE | 2021-04-20 15:08 | Internal Med Progress Note ---
SUBJECTIVE Subjective Patient information: Note initiated : 04/21/21 at 3:03 pm Service Date, if different from initiated Date: [] Patient: Tanner Rose a 70 y/o M admitted on 04/19/21 for SOB . Chief Complaint: [] Interval history: History of present illness: Mr. Rose is a 70 year old M Presents the ED with increased shortness of breath dyspnea on exertion. Patient has been dealing with this for 6 months but it got to the point where he feels like he can hardly walk across the room before he gets exhausted. He does have a cough which is essentially chronic but has been worse lately as well especially in the evenings. He sleeps and bed but head of bed elevated and was done this for 6 months. During his work-up for shortness of breath he saw Dr. 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 He also has a history of renal transplant 2013 and has chronic kidney disease stage II-III and he is on immunosuppressive medications for the transplant. He has a history of diastolic heart failure history of CAD with CABG and COPD but has not currently on home oxygen. Does carry diagnosis of A. fib. And he presented with A. fib RVR as well as put on diltiazem drip. Chest x-ray with CHF. Given Lasix with good urine output. Vital signs stable. Patient feels better. 04/20 Patient feeling better. Still does have shortness of breath but is much improved. Good urine output. Leg swelling improved. Discontinued Coreg and started Lopressor and Cardizem. Later added Digoxin IV for improved rate control. 04/21 Discontinued IV lasix and started oral lasix. Transitioned to sustained release cardizem, continued lopressor. Holding off on digoxin. Constitutional Vitals: Vital Signs Temp Pulse Resp BP Pulse Ox 97.6 F 82 19 123/71 94 04/20/21 04:08 04/20/21 04:06 04/20/21 04:06 04/20/21 04:06 04/20/21 04:06 Period Temp Pulse Resp BP Sys/Joshua Pulse Ox Last 24 Hr 97.6 F-98.9 F 25-171 16-28 103-123/63-87 88-96 Intake and Output 04/20/21 04/20/21 04/20/21 05:59 13:59 21:59 Intake Total 28 263 Output Total 565 Balance -537 263 Weight 95.345 kg Patient Weight 04/21/21 05:59 Weight 95.345 kg Intake & Output: Intake & Output 04/20/21 04/20/21 04/20/21 05:59 13:59 21:59 Intake Total 28 263 Output Total 565 Balance -537 263 Weight 95.345 kg Intake: IV 28 263 Sodium Chloride 0.9% 250 ml @ 118 20 mls/hr IV .[id number] [facility] Rx#: [id number] Cordarone 150 mg In Dextrose 5% 53 in Water 50 ml @ 300 mls/hr IV ONCE ONE Rx#:[id number] Cardizem 125 mg In Dextrose 5% 28 42 in Water 100 ml @ 5 MG/HR 5 mls /hr IV Q12H [facility] Rx#:[id number] Output: Urine Catheter Amount 565 Other: Urine Appearance Clear Urine Color Dark Yellow Exam: General: Alert, Awake, No acute Distress Eyes/N/T: EOMI, , Head/Neck: neck supple, CV: irreg, No murmurs, normal s1/s2 Pulm: mildly diminished, mild fine rales at bases, no wheezes Abd: soft, nontender, +BS x4 Ext: no clubbing/cyanosis, 1+ b/l LE edema improving Neuro: Alert, no focal deficits, moves all extremities, Skin: warm/dry OBJ DATA Labs CBC & Chem 7: 04/20/21 05:13 04/21/21 05:14 Labs: Abnormal Lab Results 04/20/21 04/20/21 04/19/21 05:13 05:13 07:27 RBC 4.36 L MPV 11.0 H Lymph # (Auto) 1.11 L Glucose Phosphorus 2.3 L Magnesium 1.5 L Direct Bilirubin 0.3 H Troponin T NT-Pro-B Natriuret Pep 1084.0 H Total Protein 5.5 L Albumin 2.9 L 04/19/21 04/19/21 04/19/21 07:27 07:27 07:27 RBC MPV 11.0 H Lymph # (Auto) Glucose 154 H Phosphorus Magnesium Direct Bilirubin Troponin T 0.03 H NT-Pro-B Natriuret Pep 2036.0 H Total Protein 5.8 L Albumin Meds: Medications Acetaminophen (Acetaminophen 325 Mg Tablet) 650 mg PO Q4-6HP PRN; Protocol PRN Reason: Per Pain Protocol/Fever > 101 Apixaban (Apixaban 5 Mg Tablet) 5 mg PO BID [facility] Last Admin: 04/20/21 08:42 Dose: 5 mg Documented by: Aspirin (Aspirin 81 Mg Tab.Chew) 81 mg PO DAILY [facility] Last Admin: 04/20/21 08:42 Dose: 81 mg Documented by: Atorvastatin Calcium (Atorvastatin 40 Mg Tablet) 40 mg PO QHS [facility] Last Admin: 04/19/21 21:36 Dose: 40 mg Documented by: Carvedilol (Carvedilol 12.5 Mg Tablet) 37.5 mg PO BIDCC [facility] Last Admin: 04/20/21 08:42 Dose: 37.5 mg Documented by: Dextrose (Dextrose 50% 50 Ml Vial) 50 ml IV UD PRN PRN Reason: Hypoglycemia Diagnostic Test (Pha) (Accu-Chek 1 Each Strip) 1 each FS [facility] Last Admin: 04/20/21 12:39 Dose: 1 each Documented by: Furosemide (Furosemide 40 Mg/4 Ml Vial) 40 mg IV BIDD [facility] Last Admin: 04/20/21 08:42 Dose: 40 mg Documented by: Sodium Chloride (Sodium Chloride 0.9%) 250 mls @ 20 mls/hr IV .[id number] [facility] Last Infusion: 04/20/21 11:00 Dose: 0 mls/hr Documented by: Albumin Human (Buminate) 12.5 gm in 50 mls @ 100 mls/hr IV ONCE ONE Stop: 04/20/21 16:29 Diltiazem HCl 125 mg/ Dextrose 125 mls @ 5 mls/hr IV PRN PRN; Protocol PRN Reason: Tachyarrhythmias Insulin Glargine (Insulin Glargine, Human 1 Unit/0.01 Ml) 35 unit SQ [facility] Last Admin: 04/19/21 21:36 Dose: 35 units Documented by: Insulin Human Lispro (Insulin Lispro 1 Unit/0.01 Ml Unit) 0 unit SQ [facility]; Protocol Last Admin: 04/20/21 12:39 Dose: 4 units Documented by: Levothyroxine Sodium (Levothyroxine 150 Mcg Tablet) 150 mcg PO ACB [facility] Last Admin: 04/20/21 08:42 Dose: 150 mcg Documented by: Loperamide HCl (Loperamide 2 Mg Capsule) 2 mg PO BIDP PRN PRN Reason: Diarrhea Magnesium Oxide (Magnesium Oxide 400 Mg Tablet) 400 mg PO QDAY [facility] Last Admin: 04/20/21 08:42 Dose: 400 mg Documented by: Metoprolol Tartrate (Metoprolol Tartrate 5 Mg/5 Ml Vial) 5 mg IV Q2HP PRN PRN Reason: Tachyarrhythmias HR>110 Last Admin: 04/20/21 14:47 Dose: 5 mg Documented by: Pantoprazole Sodium ([facility] 40 Mg Tablet) [facility] Admin: 04/20/21 07:33 Dose: 40 mg Documented by: Budesonide- Formoterol [ Symbicort] 160-4.5 Mcg/Act Inhaler 1 dose INH BID [facility] Last Admin: 04/20/21 12:08 Dose: 1 dose Documented by: Leflunomide 10 Mg (Tablet) 1 dose PO Q48H [facility] Last Admin: 04/20/21 12:07 Dose: 1 dose Documented by: Polyethylene Glycol (Polyethylene Glycol 3350 17 Gm Packet) 17 gm PO DAILYP PRN PRN Reason: Constipation Last Admin: 04/20/21 14:40 Dose: 17 gm Documented by: Potassium Chloride (Potassium Chloride 10 Meq Tablet) 10 meq PO [facility] Last Admin: 04/20/21 08:42 Dose: 10 meq Documented by: Prednisone (Prednisone 5 Mg Tablet) 5 mg PO [facility] Last Admin: 04/20/21 08:42 Dose: 5 mg Documented by: Sitagliptin Phosphate (Sitagliptin 50 Mg Tablet) 50 mg PO QDAY [facility] Last Admin: 04/20/21 08:42 Dose: 50 mg Documented by: Sodium Biphosphate/Sodium Phosphate (Fleets Adult Enema) 1 dose [place] DAILYP PRN PRN Reason: Constipation Sodium Chloride (0.9 % Sodium Chloride 10 Ml Syringe) 10 ml IV Q8 [facility] Last Admin: 04/20/21 14:40 Dose: 10 ml Documented by: Tacrolimus (Tacrolimus 0.5 Mg Capsule) 0.5 mg PO Q12H [facility] Last Admin: 04/20/21 12:07 Dose: 0.5 mg Documented by: A/P Narrative A/P Narrative: Assessment: 70-year-old male with a history of hypertension, diabetes mellitus, CAD status post CABG, renal transplant with CKD II-III, pulmonary fibrosis, COPD, pulmonary hypertension, right diaphragm hemiparalysis admitted for atrial fibrillation with rapid ventricular response and acute on chronic diastolic heart failure exacerbation. #A. fib RVR: improved rate control with lopressor and cardizem -On Eliquis at home, was previously on Coreg. #Acute on chronic diastolic heart failure w/pulm edema: -echo with good LVEF -good UOP #Acute hypoxic respiratory failure: -on 1L NC #CAD w/cabg: on ASA/Statin/BB/ACEI #HTN: norvasc/ACEI/BB/Lasix #CKD II-III w/Renal Transplant: on leflunomide/Prednisone/Tacrolimus. Follows with Dr. Bernard -chronic pyuria, per Nephro do not treat unless symptomatic #Pulmonary fibrosis/right diaphragm hemiparalysis/pulme HTN: Follows with Dr. Stallworth #COPD(currently not on home O2): #DM: #Hypothyroidism: P: -Lopressor and Cardizem for rate control, titrate to effect. -Lasix 40 mg PO BID -wean O2 as able -cont ASA/Statin -hold ACEI/norvasc for now given low-normal BP -home IH's, prn neb, LALA -basal and SSI -cont home prednisne/transplant meds -elevate legs/PILAR -PT/OT -Case management for placement needs -ppx: eliquis -Code status: DNR Time Spent With Patient Time: Total time spent is greater than 50% in coordination of care (as documented) at patient's floor/unit and/or counseling patient:
[2021-04-20] MEDS ORDERED: METOPROLOL TARTRATE 50 MG TABLET PO SCH (15:30)
[2021-04-20] MEDS ORDERED: ALBUMIN HUMAN 12.5 GM/50 ML BAG IV ONE (16:00)
[2021-04-20] MEDS ORDERED: DILTIAZEM 30 MG TABLET PO SCH (18:00)
[2021-04-20] MEDS ORDERED: DIGOXIN 500 MCG/2 ML AMPUL IV ONE (20:46)
[2021-04-20] MEDS: INSULIN GLARGINE, HUMAN 1 UNIT/0.01 ML SQ SCH (21:48)
[2021-04-20] MEDS: METOPROLOL TARTRATE 50 MG TABLET PO SCH (23:45)
[2021-04-21] MEDS ORDERED: DILTIAZEM 30 MG TABLET PO SCH (02:00)
[2021-04-21] MEDS: DIGOXIN 500 MCG/2 ML AMPUL IV SCH ×2 (02:05→05:50)
[2021-04-21] MEDS: 0.9 % SODIUM CHLORIDE 10 ML SYRINGE IV SCH ×3 (06:00→21:36)
[2021-04-21 07:39] LABS: ALT/SGPT 8 U/L (<40); AST/SGOT 13 U/L (<40); Albumin 3.1 gm/dL (3.2-5.2); Albumin/Globulin Ratio 1.3 (1.0-2.3); Alkaline Phosphatase 84 U/L (39-117); Bilirubin,Direct 0.2 mg/dL (<0.3); Bilirubin,Total 0.7 mg/dL (0.1-1.0); Blood Urea Nitrogen 21 mg/dL (8-23); Calcium 9.6 mg/dL (8.6-10.4); Carbon Dioxide 31 mmol/L (22-30); Chloride 101 mmol/L (96-108); Globulin 2.4 gm/dL (2.2-3.7); Glomerular Filtration Rate 60; Glucose 122 mg/dL (70-105); Lactate Dehydrogenase 197 U/L (135-225); Phosphorous 2.7 mg/dL (2.5-4.5); Triglycerides 93 mg/dL (<150); Uric Acid 6.9 mg/dL (2.5-8.0)
[2021-04-21] MEDS: INSULIN LISPRO 1 UNIT/0.01 ML UNIT SQ SCH ×4 (08:00→21:35)
[2021-04-21] MEDS: POTASSIUM CHLORIDE 10 MEQ TABLET PO SCH (08:00)
[2021-04-21] MEDS: LEVOTHYROXINE 150 MCG TABLET PO SCH (08:00)
[2021-04-21] MEDS: PANTOPRAZOLE 40 MG TABLET PO SCH (08:01)
[2021-04-21] MEDS: MAGNESIUM OXIDE 400 MG TABLET PO SCH (08:03)
[2021-04-21] MEDS: METOPROLOL TARTRATE 50 MG TABLET PO SCH ×2 (08:04→21:34)
[2021-04-21] MEDS: ASPIRIN 81 MG TAB.CHEW PO SCH (08:04)
[2021-04-21] MEDS: sitaGLIPtin 50 MG TABLET PO SCH (08:04)
[2021-04-21] MEDS: APIXABAN 5 MG TABLET PO SCH ×2 (08:04→21:34)
[2021-04-21] MEDS: FUROSEMIDE 40 MG/4 ML VIAL IV SCH ×2 (08:04→08:39)
[2021-04-21] MEDS: predniSONE 5 MG TABLET PO SCH (08:04)
[2021-04-21] MEDS: 0.9 % SODIUM CHLORIDE 250 ML IV SCH (08:05)
[2021-04-21] MEDS ORDERED: FUROSEMIDE 40 MG TABLET PO SCH (08:40)
[2021-04-21] MEDS ORDERED: DILTIAZEM 180 MG CAP.XL.24H PO SCH (09:00)
[2021-04-21] MEDS ORDERED: DIGOXIN 125 MCG TABLET PO SCH (09:00)
[2021-04-21] MEDS: TACROLIMUS 0.5 MG CAPSULE PO SCH ×2 (12:05→23:59)
[2021-04-21] MEDS ORDERED: DEXTROSE 50% 50 ML VIAL IV PRN (12:13)
[2021-04-21] MEDS ORDERED: LOPERAMIDE 2 MG CAPSULE PO PRN (12:13)
[2021-04-21] MEDS ORDERED: FLEETS ADULT ENEMA PR PRN (12:13)
[2021-04-21] MEDS ORDERED: METOPROLOL TARTRATE 5 MG/5 ML VIAL IV PRN (12:13)
[2021-04-21] MEDS ORDERED: ACETAMINOPHEN 325 MG TABLET PO PRN (12:13)
[2021-04-21] MEDS ORDERED: 0.9 % SODIUM CHLORIDE 250 ML IV SCH (12:13)
[2021-04-21] MEDS: FUROSEMIDE 40 MG TABLET PO SCH (16:29)
[2021-04-21] MEDS: INSULIN GLARGINE, HUMAN 1 UNIT/0.01 ML SQ SCH (21:35)
[2021-04-21] MEDS: FORMOTEROL INH SCH (21:36)
[2021-04-21] MEDS: BUDESONIDE INH SCH (21:36)
[2021-04-22] MEDS: 0.9 % SODIUM CHLORIDE 10 ML SYRINGE IV SCH ×3 (05:40→21:01)
[2021-04-22] MEDS: PANTOPRAZOLE 40 MG TABLET PO SCH (07:55)
[2021-04-22] MEDS: INSULIN LISPRO 1 UNIT/0.01 ML UNIT SQ SCH ×4 (07:55→21:00)
[2021-04-22] MEDS: POTASSIUM CHLORIDE 10 MEQ TABLET PO SCH (07:56)
[2021-04-22] MEDS: LEVOTHYROXINE 150 MCG TABLET PO SCH (07:56)
[2021-04-22] MEDS: predniSONE 5 MG TABLET PO SCH (07:56)
[2021-04-22] MEDS: FUROSEMIDE 40 MG TABLET PO SCH (07:57)
[2021-04-22 08:13] LABS: Blood Urea Nitrogen 21 mg/dL (8-23); Calcium 9.6 mg/dL (8.6-10.4); Carbon Dioxide 30 mmol/L (22-30); Chloride 100 mmol/L (96-108); Glomerular Filtration Rate 54; Glucose 140 mg/dL (70-105)
[2021-04-22] MEDS ORDERED: DILTIAZEM 240 MG CAP.XL.24H PO SCH (09:00)
[2021-04-22] MEDS: METOPROLOL TARTRATE 50 MG TABLET PO SCH ×2 (09:08→21:01)
[2021-04-22] MEDS: DILTIAZEM 240 MG CAP.XL.24H PO SCH (09:09)
[2021-04-22] MEDS: MAGNESIUM OXIDE 400 MG TABLET PO SCH (09:09)
[2021-04-22] MEDS: APIXABAN 5 MG TABLET PO SCH ×2 (09:09→20:59)
[2021-04-22] MEDS: sitaGLIPtin 50 MG TABLET PO SCH (09:09)
[2021-04-22] MEDS: ASPIRIN 81 MG TAB.CHEW PO SCH (09:09)
[2021-04-22] MEDS: BUDESONIDE INH SCH ×2 (09:11→21:01)
[2021-04-22] MEDS: FORMOTEROL INH SCH ×2 (09:11→21:01)
[2021-04-22] MEDS: POLYETHYLENE GLYCOL 3350 17 GM PACKET PO PRN (09:26)
--- NOTE | 2021-04-22 09:47 | XRay Report ---
HISTORY: Follow-up pulmonary infiltrates after diuresis FINDINGS: Lung volumes are small, especially on the right side. There is chronic moderate elevation of the right diaphragm. There are diffuse infiltrates in both lungs with the greatest involvement centrally in the right lung. The infiltrates have not changed since 04/19/21. The heart size is normal. The pulmonary vessels are obscured by the infiltrates. No pleural effusion is present. IMPRESSION: Stable diffuse infiltrates in both lungs which may be due to ARDS or pneumonia. The lack of response to diuresis indicates pulmonary edema is a less likely consideration. Interpreted and Authenticated by: Tonio Reinoso 04/22/21
--- NOTE | 2021-04-22 11:36 | Internal Med Progress Note ---
SUBJECTIVE Subjective Patient information: Note initiated : 04/22/21 at 11:34 am Service Date, if different from initiated Date: [] Patient: Tanner Rose a 70 y/o M admitted on 04/19/21 for SOB . Chief Complaint: [] Interval history: History of present illness: Mr. Rose is a 70 year old M Presents the ED with increased shortness of breath dyspnea on exertion. Patient has been dealing with this for 6 months but it got to the point where he feels like he can hardly walk across the room before he gets exhausted. He does have a cough which is essentially chronic but has been worse lately as well especially in the evenings. He sleeps and bed but head of bed elevated and was done this for 6 months. During his work-up for shortness of breath he saw Dr. 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 He also has a history of renal transplant 2013 and has chronic kidney disease stage II-III and he is on immunosuppressive medications for the transplant. He has a history of diastolic heart failure history of CAD with CABG and COPD but has not currently on home oxygen. Does carry diagnosis of A. fib. And he presented with A. fib RVR as well as put on diltiazem drip. Chest x-ray with CHF. Given Lasix with good urine output. Vital signs stable. Patient feels better. 04/20 Patient feeling better. Still does have shortness of breath but is much improved. Good urine output. Leg swelling improved. Discontinued Coreg and started Lopressor and Cardizem. Later added Digoxin IV for improved rate control. 04/21 Discontinued IV lasix and started oral lasix. Transitioned to sustained release cardizem, continued lopressor. Holding off on digoxin. 04/22 Increased Cardizem SR to 240 mg daily, continued Lopressor 100 mg BID. Still has bilateral basilar crackles, chest xray looks about the same as prio. Will give one dose of lasix IV later today and go from there. Constitutional Vitals: Vital Signs Temp Pulse Resp BP Pulse Ox 97.4 F 115 H 20 117/85 92 04/22/21 08:00 04/20/21 15:02 04/22/21 11:00 04/22/21 11:00 04/22/21 11:00 Period Temp Pulse Resp BP Sys/Joshua Pulse Ox Last 24 Hr 97.4 F-98.6 F 16-20 108-133/66-97 85-96 Intake and Output 04/21/21 04/22/21 04/22/21 21:59 05:59 13:59 Intake Total 360 260 960 Output Total 230 1600 Balance 130 -1340 960 Weight 94.937 kg Intake & Output: Intake & Output 04/21/21 04/22/21 04/22/21 21:59 05:59 13:59 Intake Total 360 260 960 Output Total 230 1600 Balance 130 -1340 960 Weight 94.937 kg Intake: Oral 360 260 960 Output: Urine Catheter Amount 230 1600 Other: Meal Dinner Breakfast Percent of Meal Consumed 100% 100% Feeding Ability Independent Urine Appearance Clear Clear Urine Color Bright Yellow Light Kelsey Urine Odor Normal Exam: General: Alert, Awake, No acute Distress Eyes/N/T: EOMI, , Head/Neck: neck supple, CV: irreg, No murmurs, normal s1/s2 Pulm: mildly diminished, mild fine rales at bases, no wheezes Abd: soft, nontender, +BS x4 Ext: no clubbing/cyanosis, 1+ b/l LE edema improving Neuro: Alert, no focal deficits, moves all extremities, Skin: warm/dry OBJ DATA Labs CBC & Chem 7: 04/20/21 05:13 04/22/21 06:56 Labs: Abnormal Lab Results 04/22/21 04/21/21 04/20/21 06:56 05:14 05:13 RBC MPV Lymph # (Auto) Carbon Dioxide 31 H Anion Gap 6.0 L Creatinine 1.3 H Glucose 140 H 122 H Phosphorus 2.3 L Magnesium Direct Bilirubin 0.3 H NT-Pro-B Natriuret Pep 1084.0 H Total Protein 5.5 L 5.5 L Albumin 3.1 L 2.9 L 04/20/21 04/19/21 05:13 07:27 RBC 4.36 L MPV 11.0 H Lymph # (Auto) 1.11 L Carbon Dioxide Anion Gap Creatinine Glucose Phosphorus Magnesium 1.5 L Direct Bilirubin NT-Pro-B Natriuret Pep Total Protein Albumin Meds: Medications Acetaminophen (Acetaminophen 325 Mg Tablet) 650 mg PO Q4-6HP PRN; Protocol PRN Reason: Per Pain Protocol/Fever > 101 Apixaban (Apixaban 5 Mg Tablet) 5 mg PO BID [facility] Last Admin: 04/22/21 09:09 Dose: 5 mg Documented by: Aspirin (Aspirin 81 Mg Tab.Chew) 81 mg PO DAILY [facility] Last Admin: 04/22/21 09:09 Dose: 81 mg Documented by: Dextrose (Dextrose 50% 50 Ml Vial) 50 ml IV UD PRN PRN Reason: Hypoglycemia Diagnostic Test (Pha) (Accu-Chek 1 Each Strip) 1 each FS [facility] Last Admin: 04/22/21 07:53 Dose: 1 each Documented by: Diltiazem HCl (Diltiazem 240 Mg Cap.Xl.24h) 240 mg PO DAILY [facility] Last Admin: 04/22/21 09:09 Dose: 240 mg Documented by: Furosemide (Furosemide 40 Mg/4 Ml Vial) 40 mg IV ONCE ONE Stop: 04/22/21 16:01 Furosemide (Furosemide 40 Mg Tablet) 40 mg PO BIDD [facility] Insulin Glargine (Insulin Glargine, Human 1 Unit/0.01 Ml) 35 unit SQ HS [facility] Last Admin: 04/21/21 21:35 Dose: 35 units Documented by: Insulin Human Lispro (Insulin Lispro 1 Unit/0.01 Ml Unit) 0 unit SQ [facility]; Protocol Last Admin: 04/22/21 07:55 Dose: Not Given Documented by: Levothyroxine Sodium (Levothyroxine 150 Mcg Tablet) 150 mcg PO ACB [facility] Last Admin: 04/22/21 07:56 Dose: 150 mcg Documented by: Loperamide HCl (Loperamide 2 Mg Capsule) 2 mg PO BIDP PRN PRN Reason: Diarrhea Magnesium Oxide (Magnesium Oxide 400 Mg Tablet) 400 mg PO QDAY [facility] Last Admin: 04/22/21 09:09 Dose: 400 mg Documented by: Metoprolol Tartrate (Metoprolol Tartrate 50 Mg Tablet) 100 mg PO BID [facility] Last Admin: 04/22/21 09:08 Dose: 100 mg Documented by: Metoprolol Tartrate (Metoprolol Tartrate 5 Mg/5 Ml Vial) 5 mg IV Q2HP PRN PRN Reason: Tachyarrhythmias HR>110 Pantoprazole Sodium (Pantoprazole 40 Mg Tablet) 40 mg PO QAMAC [facility] Last Admin: 04/22/21 07:55 Dose: 40 mg Documented by: [Symbicort] 160-4.5 (Mcg/Act Inhaler) 1 dose INH BID [facility] Last Admin: 04/22/21 09:11 Dose: 1 dose Documented by: Leflunomide 10 Mg (Tablet) 1 dose PO Q48H [facility] Last Admin: 04/22/21 09:11 Dose: 1 dose Documented by: Polyethylene Glycol (Polyethylene Glycol 3350 17 Gm Packet) 17 gm PO DAILYP PRN PRN Reason: Constipation Last Admin: 04/22/21 09:26 Dose: 17 gm Documented by: Potassium Chloride (Potassium Chloride 10 Meq Tablet) 10 meq PO [facility] Last Admin: 04/22/21 07:56 Dose: 10 meq Documented by: Prednisone (Prednisone 5 Mg Tablet) 5 mg PO [facility] Last Admin: 04/22/21 07:56 Dose: 5 mg Documented by: Sitagliptin Phosphate (Sitagliptin 50 Mg Tablet) 50 mg PO QDAY [facility] Last Admin: 04/22/21 09:09 Dose: 50 mg Documented by: Sodium Biphosphate/Sodium Phosphate (Fleets Adult Enema) [address] DAILYP PRN PRN Reason: Constipation Sodium Chloride (0.9 % Sodium Chloride 10 Ml Syringe) 10 ml IV Q8 [facility] Last Admin: 04/22/21 05:40 Dose: 10 ml Documented by: Tacrolimus (Tacrolimus 0.5 Mg Capsule) 0.5 mg PO Q12H [facility] Last Admin: 04/21/21 23:59 Dose: 0.5 mg Documented by: A/P Narrative A/P Narrative: Assessment: 70-year-old male with a history of hypertension, diabetes mellitus, CAD status post CABG, renal transplant with CKD II-III, pulmonary fibrosis, COPD, pulmonary hypertension, right diaphragm hemiparalysis admitted for atrial fibrillation with rapid ventricular response and acute on chronic diastolic heart failure exacerbation. #A. fib RVR: improved rate control with lopressor and cardizem -On Eliquis at home, was previously on Coreg. #Acute on chronic diastolic heart failure w/pulm edema: -echo with good LVEF -good UOP #Acute hypoxic respiratory failure: -on 1L NC #CAD w/cabg: on ASA/Statin/BB/ACEI #HTN: norvasc/ACEI/BB/Lasix #CKD II-III w/Renal Transplant: on leflunomide/Prednisone/Tacrolimus. Follows with Dr. Joana -chronic pyuria, per Nephro do not treat unless symptomatic #Pulmonary fibrosis/right diaphragm hemiparalysis/pulme HTN: Follows with Dr. Stallworth #COPD(currently not on home O2): #DM: #Hypothyroidism: P: -Lopressor and Cardizem for rate control, titrate to effect. -Lasix 40 IV today, follow renal function. -Oxygen supplementation as needed. -cont ASA/Statin -hold ACEI/norvasc for now given low-normal BP -home IH's, prn neb, LALA -basal and SSI -cont home prednisone/transplant meds -elevate legs/PILAR -PT/OT -Case management for placement needs -ppx: eliquis -Code status: DNR -Disposition: home +/- home health, home oxygen evaluation prior to discharge. Time Spent With Patient Time: Total time spent is greater than 50% in coordination of care (as documented) at patient's floor/unit and/or counseling patient:
[2021-04-22] MEDS ORDERED: FUROSEMIDE 40 MG/4 ML VIAL IV ONE (16:00)
[2021-04-22] MEDS: TACROLIMUS 0.5 MG CAPSULE PO SCH (17:06)
[2021-04-22] MEDS: INSULIN GLARGINE, HUMAN 1 UNIT/0.01 ML SQ SCH (21:00)
[2021-04-23] MEDS: TACROLIMUS 0.5 MG CAPSULE PO SCH ×2 (03:44→12:12)
[2021-04-23] MEDS: 0.9 % SODIUM CHLORIDE 10 ML SYRINGE IV SCH ×2 (05:47→16:01)
[2021-04-23 06:20] LABS: Albumin 3.3 gm/dL (3.2-5.2); Blood Urea Nitrogen 22 mg/dL (8-23); Calcium 9.5 mg/dL (8.6-10.4); Carbon Dioxide 31 mmol/L (22-30); Chloride 97 mmol/L (96-108); Glomerular Filtration Rate 60; Glucose 106 mg/dL (70-105); Phosphorous 2.1 mg/dL (2.5-4.5)
[2021-04-23] MEDS: POTASSIUM CHLORIDE 10 MEQ TABLET PO SCH (07:07)
[2021-04-23] MEDS: LEVOTHYROXINE 150 MCG TABLET PO SCH (07:07)
[2021-04-23] MEDS: PANTOPRAZOLE 40 MG TABLET PO SCH (07:08)
[2021-04-23] MEDS: predniSONE 5 MG TABLET PO SCH (07:08)
[2021-04-23] MEDS: POLYETHYLENE GLYCOL 3350 17 GM PACKET PO PRN (07:08)
[2021-04-23] MEDS: INSULIN LISPRO 1 UNIT/0.01 ML UNIT SQ SCH ×2 (07:13→12:11)
[2021-04-23] MEDS ORDERED: INSULIN LISPRO 1 UNIT/0.01 ML UNIT SQ SCH (07:30)
[2021-04-23] MEDS ORDERED: FUROSEMIDE 40 MG TABLET PO SCH (08:00)
[2021-04-23] MEDS: METOPROLOL TARTRATE 50 MG TABLET PO SCH (08:45)
[2021-04-23] MEDS: sitaGLIPtin 50 MG TABLET PO SCH (08:45)
[2021-04-23] MEDS: DILTIAZEM 240 MG CAP.XL.24H PO SCH (08:45)
[2021-04-23] MEDS: MAGNESIUM OXIDE 400 MG TABLET PO SCH (08:46)
[2021-04-23] MEDS: ASPIRIN 81 MG TAB.CHEW PO SCH (08:46)
[2021-04-23] MEDS: BUDESONIDE INH SCH (08:47)
[2021-04-23] MEDS: APIXABAN 5 MG TABLET PO SCH (08:47)
[2021-04-23] MEDS: FORMOTEROL INH SCH (08:47)
[2021-04-23] MEDS: FUROSEMIDE 40 MG/4 ML VIAL IV SCH ×2 (10:31→16:02)
--- NOTE | 2021-04-23 11:32 | Discharge Summary ---
Discharge Provider Provider Patient information: Note initiated : 04/23/21 at 11:23 am Service Date, if different from initiated Date: [] Patient: Tanner Rose 70 y/o M admitted on 04/19/21 for SOB . Chief Complaint: [] Date of admission: 04/19/21 11:11 Discharge date: 04/23/21 Primary care physician: Yomi Artis MD Consults: 04/19/21 Consult to Physician [CONS] Stat Comment: Consulting Provider: Arley Montejo Reason For Exam: Physician to Consult Discharge Meds Discharge Medications Home Medications aspirin 81 mg capsule,delayed release 81 mg PO QDAY 05/13/15 [History Confirmed 04/19/21 Last Taken 05/19/15] potassium chloride 10 mEq tablet,extended release 10 meq PO QDAY 10/10/18 [History Confirmed 04/19/21 Last Taken Unknown] budesonide-formoterol HFA 160 mcg-4.5 mcg/actuation aerosol inhaler 2 puff INHALATION BID #10.2 g 06/14/20 [Rx Confirmed 04/19/21 Last Taken Unknown] tacrolimus 0.5 mg capsule, immediate-release 0.5 mg PO Q12H 90 Days #180 cap 07/01/20 [Rx Confirmed 04/19/21 Last Taken Unknown] apixaban 5 mg tablet 5 mg PO DAILY #90 tab 08/24/20 [Rx Confirmed 04/19/21 Last Taken Unknown] magnesium oxide 400 mg (241.3 mg magnesium) tablet 400 mg PO QDAY tab 08/29/20 [History Confirmed 04/19/21 Last Taken Unknown] insulin glargine 100 unit/mL (3 mL) subcutaneous pen 35 unit SUB-Q QAM 90 Days #33 ml 09/22/20 [Rx Confirmed 04/19/21 Last Taken Unknown] loperamide 2 mg tablet 2 mg PO BID PRN #20 tab 09/22/20 [Rx Confirmed 04/19/21 Last Taken Unknown] prednisone 5 mg tablet 5 mg PO QDAY #90 tab 11/18/20 [Rx Confirmed 04/19/21 Last Taken Unknown] leflunomide 10 mg tablet 10 mg PO .QOD #30 tab 01/04/21 [Rx Confirmed 04/19/21 Last Taken Unknown] albuterol sulfate 90 mcg/actuation breath activated powder inhaler 2 inh INHALATION Q6H PRN #1 each 01/16/21 [Rx Confirmed 04/19/21 Last Taken Unknown] atorvastatin 40 mg tablet 40 mg PO QHS #90 tab 02/01/21 [Rx Confirmed 04/19/21 Last Taken Unknown] insulin lispro 100 unit/mL subcutaneous pen See Rx Instructions SUB-Q TID #90 ml 02/09/21 [Rx Confirmed 04/19/21 Last Taken Unknown] levothyroxine 150 mcg tablet 150 mcg PO QDAY #90 tab 02/09/21 [Rx Confirmed 04/19/21 Last Taken Unknown] sitagliptin 50 mg tablet 50 mg PO QDAY tab 04/04/21 [History Confirmed 04/19/21 Last Taken Unknown] diltiazem HCl 240 mg PO DAILY #30 cap 04/23/21 [Rx Last Taken Unknown] metoprolol tartrate [Lopressor] 100 mg PO BID #60 tab 04/23/21 [Rx Last Taken Unknown] torsemide 20 mg PO QDAY #30 tab 04/23/21 [Rx Last Taken Unknown] COURSE Hospital Course Hospital course: Mr. Rose is a 70 year old male who presented to the ED with increased shortness of breath dyspnea on exertion. Patient has been dealing with this for 6 months but it got to the point where he feels like he can hardly walk across the room before he gets exhausted. He does have a cough which is essentially chronic but has been worse lately as well especially in the evenings. He sleeps and bed but head of bed elevated and was done this for 6 months. During his work-up for shortness of breath he saw Dr. 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 He also has a history of renal transplant 2013 and has chronic kidney disease stage II-III and he is on immunosuppressive medications for the transplant. He has a history of diastolic heart failure history of CAD with CABG and COPD but has not currently on home oxygen. Does carry diagnosis of A. fib. On presentation he was in atrial fibrilation with RVR initially managed with a diltiazem drip. Chest x-ray with CHF. Given Lasix with good urine output. 04/20 Patient feeling better. Still does have shortness of breath but is much improved. Good urine output. Leg swelling improved. Discontinued Coreg and started Lopressor and Cardizem. Later added Digoxin IV for improved rate control. 04/21 Transitioned to sustained release Cardizem 180 mg daily, continued Lopressor. Digoxin IV overnight with improved rate control. 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 04/22 Still fast heart rate but improved overall, diuresing well. Increased Cardizem SR to 240 mg daily, continued Lopressor 100 mg BID. Still has bilateral basilar crackles, chest xray looks about the same as prior. Will give one dose of lasix IV later today and go from there. 04/23 Feels better than he has in a long time, very near dry weight. Renal function has been stable with diuresis. Remove melgar catheter and ensure patient is able to self catheterize as per his baseline. Will discharge on Torsemide 20 mg daily, Lopressor 100 mg BID, Cardizem SR 240 mg daily with PCP, nephrology, and cardiology follow up. Reviewed low sodium diet, daily weight, blood pressure diary. Holding Lisinopril and Amlodipine at discharge due to low normal BP with high dose rate control meds. Discontinued prior home lasix and utilizing torsemide instead. Post hospital follow up; -Volume status, renal function, and potassium level-on Torsemide. -Blood pressure control-consider resuming lisinopril. -Rate control for atrial fibrillation-on Lopressor and Cardizem. -Follow up with PCP, nephrology, cardiology. Physical exam Head: Atraumatic, normal inspection. Eyes: normal appearance, no scleral icterus. Neck: full ROM Respiratory: no respiratory distress. Cardiovascular: normal rate and rhythm, S1, S2. GI/Abdominal: soft, nontender, no guarding. Extremities: full range of motion, nontender, mild pitting edema at bilateral ankles. Neurological: CN II-XII intact, intact motor, intact sensation. Psychiatric: normal mood. Skin: warm, normal color Discharge diagnosis: Acute on chronic diastolic heart failure Secondary discharge diagnosis: Atrial fibrillation with rapid ventricular responce Time Spent with Patient Time attestation: Total time spent providing and/or coordinating discharge services: EXAM Constitutional Vitals: Temp Pulse Resp BP Pulse Ox 98 F 115 H 20 129/88 93 04/23/21 08:01 04/20/21 15:02 04/23/21 10:00 04/23/21 10:00 04/23/21 10:00 Discharge Data Data Completed and Pending Labs on day of discharge: Labs from last 24 hours 04/23/21 05:14 Sodium 138 Potassium 3.5 Chloride 97 Carbon Dioxide 31 H Anion Gap 10.0 BUN 22 Creatinine 1.2 GFR Calculation 60 Glucose 106 H Calcium 9.5 Phosphorus 2.1 L Albumin 3.3 Discharge Plan Patient/Caregiver Discharge Instructions Activity: increase activity as tolerated Diet: Low Sodium (2gm) Instructions: Heart Failure (DC), A-fib (Atrial Fibrillation) (DC), Seasoning Without Salt (DC), Low-Sodium Diet (DC) Activity Restrictions/Additional Instructions: You are taking high does medication to control your heart rate. It is important for you to weigh yourself every day and keep a journal of your weight daily. If you gain five pounds in 1-2 days you need to follow up with your primary care provider as soon as possible to prevent rehospitalization. You also need to take your heart rate and blood pressure in the AM and PM daily and journal it. Take this with you to see your primary care provider, Dr. Yusuf and the automotive electrician. We will call tomorrow to make your follow up appointments with your primary care provider, Dr. Yusuf and cardiology. We will call you with the dates and times. This discharge packet is provided to you to help keep you informed about your care. We want to ensure you get everything you need when you go home. You will also be receiving a call from us in a few days to follow up with you and see how you are doing since your discharge. This gives us a chance to listen to any concerns you maybe experiencing since you were discharged or any additional needs you may have, as well as providing us feedback on your care experience. We strive to always provide excellent care and thank you for your feedback and for choosing [facility]. Prescriptions: New torsemide 20 mg tablet 20 mg PO QDAY Qty: 30 RF: 3 diltiazem HCl 240 mg Capsule,Extended Release 24hr 240 mg PO DAILY Qty: 30 RF: 3 metoprolol tartrate [Lopressor] 100 mg tablet 100 mg PO BID Qty: 60 RF: 3 Continued Symbicort 160-4.5 mcg/actuation HFA aerosol inhaler 2 puff INHALATION BID Qty: 10.2 RF: 12 tacrolimus 0.5 mg capsule 0.5 mg PO Q12H 90 Days Qty: 180 RF: 3 prednisone 5 mg tablet 5 mg PO QDAY Qty: 90 RF: 3 leflunomide 10 mg tablet 10 mg PO .QOD Qty: 30 RF: 6 atorvastatin 40 mg tablet 40 mg PO QHS Qty: 90 RF: 3 insulin lispro [Humalog KwikPen Insulin] 100 unit/mL insulin pen See Rx Instructions SUB-Q TID Qty: 90 RF: 1 levothyroxine 150 mcg tablet 150 mcg PO QDAY Qty: 90 RF: 1 aspirin 81 mg capsule,delayed release(DR/EC) 81 mg PO QDAY RF: 0 magnesium oxide 400 mg (241.3 mg magnesium) tablet 400 mg PO QDAY RF: 0 Eliquis 5 mg tablet 5 mg PO DAILY Qty: 90 RF: 1 Basaglar KwikPen U-100 Insulin 100 unit/mL (3 mL) insulin pen 35 unit SUB-Q QAM 90 Days Qty: 33 RF: 3 loperamide [Imodium A-D] 2 mg tablet 2 mg PO BID PRN (Reason: loose stool) Qty: 20 RF: 0 potassium chloride 10 mEq tablet extended release 10 meq PO QDAY RF: 0 sitagliptin 50 mg tablet 50 mg PO QDAY RF: 0 albuterol sulfate 90 mcg/actuation aerosol powdr breath activated 2 inh INHALATION Q6H PRN (Reason: shortness of breath or wheezing) Qty: 1 RF: 2 Discontinued carvedilol 25 mg tablet 37.5 mg PO BID Qty: 270 RF: 1 amlodipine 10 mg tablet 10 mg PO QHS Qty: 90 RF: 3 lisinopril 10 mg tablet 10 mg PO QDAY Qty: 90 RF: 1 furosemide 20 mg tablet 20 mg PO QAM Qty: 90 RF: 3 Follow Up Plan Follow up with: Jaime Bernard MD [Physician] - (Follow up for CKD (renal transplant), recent hospitalization for afib w/ RVR and heart failure discharged on new medications (torsemide, diltiazem, and lopressor) ) Mason Dick MD [Physician] - (Atrial fibrillation and heart failure, recently discharged from [facility]. High dose Lopressor and Diltiazem for rate control, Torsemide for diuretic instead prior home lasix. ) Yomi Artis MD [Primary Care Provider] - Patient Disposition: Home, Self-Care Discharge Orders: Discharge Order (Routine); Ordered 04/23/21 Ordered By: Cipriano Thornton
== END 2021-04-23 15:35 | disposition home or self-care (01) | DRG 291 ==
LOC: ED 06:51 → ICU 11:11
PROVIDERS: ADMIT Internal Medicine; ATTEND Internal Medicine